=== PATIENT | female | born 1940 | race Caucasian/White ===

== ENCOUNTER 2018-04-11 01:12 | Emergency (ER) | payer MEDICARE, OTHER ==
[~2018-04-11] VITALS: Ht 157.5 cm; Wt 79.4 kg
[~2018-04-11 01:12] MED LIST: ASPIRIN81 M2 PO; VITAMIN D400 UNI1 PO; Z.0.HYZAAR 100-251 E PO
--- OUTSIDE RECORDS SUMMARY | 2018-04-11 01:15 | XMS REPORT | Encounter Summary ---
Author Organization Unknown Address [address] [place] [address] Phone [phone] Reason for Visit Medical Complaint Instructions 1. Eustachian tube disorder eustachian tube problems: care instructions 2. Seasonal allergy seasonal allergies: care instructions Xyzal 5 mg tablet Discussion Note Pt is in NAD; Verbalizes understanding of all instructions with no questions at this time. Plan of Care Patient Instructions Stop Claritin and stary Xyzal for allergy like symptoms. Continue Flonase as directed Take medications as prescribed. Return to clinic or follow up with your PCP within 2-3 days if symptoms worsen as discussed. I recommend evaluation by ENT. Reminders Provider Appointments None recorded. Lab None recorded. Referral None recorded. Procedures None recorded. Surgeries None recorded. Imaging None recorded. Medications Name Start Date aspirin benzonatate 200 mg capsule Take 1 capsule 3 times a day by oral route as needed for cough. clobetasol 0.05 % scalp solution APPLY TO RASH IN SCALP AND EARS TWICE A DAY. desonide 0.05 % topical cream fluticasone 50 mcg/actuation nasal spray,suspension [place] 1 spray every day by intranasal route as needed. losartan 100 mg-hydrochlorothiazide 25 mg tablet TAKE ONE (1) TABLET(S) BY MOUTH ONCE A DAY. ProAir HFA 90 mcg/actuation aerosol inhaler Inhale 2 puffs every 3-4 hours by inhalation route as needed. Xyzal 5 mg tablet Take 1 tablet every day by oral route as needed for 10 days. Medications Administered None recorded. Vitals Height Weight BMI Blood Pressure 5 ft 2 in 200 lbs 36.6 140/86 Lab Results None recorded. Allergies Name Reaction Severity Onset NKDA Problems Name Status Onset Date Source Acute Suppurative Otitis Media without Spontaneous Rupture of Ear Drum Active Encounter Acute Upper Respiratory Infection Active Encounter Upper Respiratory Infection Active Encounter Urinary Tract Infectious Disease Active Encounter Cellulitis Active Encounter Procedures Date Name Performed by Cholecystectomy Information not available Vaccine List Vaccine Type influenza, unspecified formulation 12/16/2015 pneumococcal, unspecified formulation 03/17/2012 Social History Smoking Status Never Smoker Past Encounters 06/19/2016 Eustachian Tube Disorder; Seasonal Allergy BORIS Encarnacion-C: [address] [place] [address], Ph. 05/29/2016 Acute Bronchitis BORIS Encarnacion-C: [address] [place] [address], Ph. History of Present Illness Ear Complaint Reported By: Patient HPI: Location: right. Quality: ears feel full/plugged, muffled. Severity: continuous. Duration: constant, symptoms lasting over 2 weeks. Onset/Timing: gradual. Context: no sick contacts, no recent swimming/water in ear, no exposure to second hand smoke, no head trauma, not grinding teeth, no recent air travel. Modifying factors: does not hurt to lie on, or pull on ear, does not hurt to chew; Flonase and claritin. Associated Symptoms: no discharge from the ears, no nose/sinus problems, no ringing in the ears, no fever, no chills, no earache, no dizziness, no vertigo, no headache, no muscle aches, hearing loss, popping noise in the ears Review of Systems:ROS as noted in the HPI Review of Systems Basic Reported By: Patient Physical Exam Adult Basic, Adult Female Complete Reported By: Patient Constitutional: General Appearance: healthy-appearing, well-nourished, well-developed. Level of Distress: NAD. Ambulation: ambulating normally Psychiatric: Mental Status: active and alert. Orientation: to time, to place, to person Ezt-Gnyh-Yxtzt-Throat: Ears: no lesions on external ear, no outer ear tenderness, EACs clear, TMs clear. Hearing: no hearing loss. Nose: no lesions on external nose, nares patent, no septal deviation, nasal passages clear, no sinus tenderness, no nasal discharge. Lips, Teeth, and Gums: no mouth or lip ulcers, no bleeding gums, normal dentition. Oropharynx: moist mucous membranes, no erythema, no exudates, tonsils not enlarged Neck: Neck: supple. Lymph Nodes: no cervical LAD Lungs: Respiratory effort: no dyspnea, no tachypnea, no use of accessory muscles, no intercostal retractions. Auscultation: breath sounds normal Cardiovascular: Heart Auscultation: RRR, no murmurs Neurologic: Gait and Station: normal gait, normal station
--- OUTSIDE RECORDS SUMMARY | 2018-04-11 01:15 | XMS REPORT | Summary of Care ---
Author Author [facility] Address Unknown Phone Unavailable Encounter HQ Encntr_alirasta([facility]) [id number] Date(s): 01/09/16 - 02/07/16 [facility] Final: Pain, unspecified Discharge Disposition: Home or Self Care Attending Physician: Lv Corral MD Vital Signs No data available for this section Problem List No data available for this section Allergies, Adverse Reactions, Alerts No data available for this section Medications No data available for this section Results No data available for this section Immunizations No data available for this section Procedures No data available for this section Social History No data available for this section Assessment and Plan No data available for this section
--- OUTSIDE RECORDS SUMMARY | 2018-04-11 01:15 | XMS REPORT | Clinical Summary ---
Author Author [facility] Address Unknown Phone Unavailable Care Team Providers Care Non Food Receiving Clerk Name Role Phone Jose Magana MD PCP Allergies No Known Allergies Medications End Date Status Medication Sig Dispensed Refills Start Date Active losartan-hydrochlorothiaz TAKE ONE (1) 0 irina (HYZAAR) 100-25 mg TABLET(S) BY per tablet MOUTH ONCE A DAY. Active cholecalciferol, vitamin Take 2,000 0 D3, (VITAMIN D3) 2,000 Units by unit capsule capsule mouth daily. Active Problems Problem Noted Date Hyperparathyroidism 10/12/2016 Toe sprain 12/28/2015 Closed fracture of humerus 12/08/2015 Encounters Care Team Description Date Type Specialty Lv Corral MD 10/17/2017 Refill Orthopedic Surgery after 04/10/2017 Family History Medical History Relation Name Comments Cancer Father No Known Problems Mother Relation Name Status Comments Father melanoma Mother Social History Date Tobacco Use Types Packs/Day Years Used Never Smoker Smokeless Tobacco: Never Used Alcohol Use Drinks/Week oz/Week Comments No Sex Assigned at Date Recorded Not on file Industry Job Start Date Occupation Not on file Not on file Not on file Travel End Travel History Travel Start No recent travel history available. Last Filed Vital Signs Not on file Plan of Treatment Health Maintenance Due Date Last Done Comments SHINGLES VACCINES (1 of 1991 2) PNEUMOCOCCAL 2006 POLYSACCHARIDE VACCINE AGE 65 AND OVER PNEUMOCOCCAL-13 2006 INFLUENZA VACCINE 10/16/2017 Results Not on fileafter 04/10/2017 Insurance Payer Benefit Subscriber ID Type Phone Address Plan / Group MEDICARE MEDICARE xxxxxxxxxx Medicare [place], [place] PART A AND B AETNA AETNA xxxxxxxxxx Indemnity [employer] INDEMNITY Advance Directives Patient has advance care planning documents, and code status on file. For more i nformation, please contact: Riky Johansen [address] [place] [address] Date Inactivated Comments Code Status Date Activated 10/13/2016 4:22 PM Full Code 10/12/2016 3:10 PM Code Status decision reached by: Patient
--- OUTSIDE RECORDS SUMMARY | 2018-04-11 01:15 | XMS REPORT | Encounter Summary ---
Author Organization Unknown Address [address] [place] [address] Phone [phone] Reason for Visit Medical Complaint Instructions 1. Dysuria painful urination (dysuria): care instructions Macrobid 100 mg capsule culture, urine urinalysis, dipstick 2. Hypertensive disorder elevated blood pressure: care instructions 3. Body mass index 30+ - obesity A healthy lifestyle: care instructions Discussion Note: None recorded. Plan of Care Patient Instructions Drink plenty of water and wear cotton underwear. Please finish all antibiotics, even if you are feeling better. This prevents the infection from coming back. Please seek care or return to [facility] if symptoms do not resolve in 1 week. Reminders Provider Appointments None recorded. Lab Culture, Urine 02/12/2018 [facility] Urinalysis, Dipstick 02/12/2018 [facility] Referral None recorded. Procedures None recorded. Surgeries None recorded. Imaging None recorded. Medications Name Start Date aspirin losartan 100 mg-hydrochlorothiazide 25 mg tablet TAKE ONE (1) TABLET(S) BY MOUTH ONCE A DAY. Macrobid 100 mg capsule Take 1 capsule every 12 hours by oral route for 5 days. ProAir HFA 90 mcg/actuation aerosol inhaler Inhale 2 puffs every 3-4 hours by inhalation route as needed. tamsulosin 0.4 mg capsule TAKE ONE (1) CAPSULE(S) BY MOUTH ONCE A DAY 30 MINUTES AFTER THE SAME MEAL TO HELP PASS A STONE. Medications Administered None recorded. Vitals Height Weight BMI Blood Pressure 5 ft 2 in 190 lbs 34.8 kg/m2 132/82 mm[Hg] Lab Results None recorded. Allergies Code Code System Name Reaction Severity Status Onset NKDA Problems No Known Problems Procedures Date Name Performed by Cholecystectomy Information not available Vaccine List Vaccine Type influenza, unspecified formulation 12/17/2015 pneumococcal, unspecified formulation 03/18/2012 Social History Smoking Status Never Smoker Past Encounters 02/12/2018 Dysuria; Hypertensive Disorder; Body Mass Index 30+ - Obesity NELSON Powell: [address], [place] [address], Ph. History of Present Illness Zmaumv-VWY-Zkeiavb Reported By: Patient HPI: Duration: started 7 days. Associated Symptoms: no fever/chills, no flank pain, no jaundice, no blood in the urine, no vaginal discharge, no urgency, no blisters on genitals, no rash on genitals, no muscle aches, no headache, pain during urination, burning sensation during urination Review of Systems:ROS as noted in the HPI Review of Systems Basic Reported By: Patient Physical Exam Adult Basic, Adult Female Complete, 14-21 Yr Females Reported By: Patient Constitutional: General Appearance: healthy-appearing, well-nourished, well-developed. Level of Distress: NAD. Ambulation: ambulating normally Lungs: Respiratory effort: no dyspnea, no tachypnea, no use of accessory muscles, no intercostal retractions. Auscultation: breath sounds normal, clear to auscultation, no wheezing, no rales/crackles, no rhonchi, no retractions Cardiovascular: Heart Auscultation: RRR, no murmurs, no gallops, no rub, normal femoral pulse. Rate and rhythm: regular Abdomen: Bowel Sounds: normal. Inspection and Palpation: soft, non-distended, no tenderness, no guarding, no rebound tenderness, no masses, CVA tenderness. Liver: non-tender, no hepatomegaly. Spleen: non-tender, no splenomegaly. Palpation: (normal) bowel sounds
--- OUTSIDE RECORDS SUMMARY | 2018-04-11 01:15 | XMS REPORT | Encounter Summary ---
Author Organization Unknown Address [address] [place] [address] Phone [phone] Reason for Visit Medical Complaint Instructions 1. Dysuria painful urination (dysuria): care instructions culture, urine urinalysis, dipstick Bactrim DS 800 mg-160 mg tablet 2. Hypertensive disorder elevated blood pressure: care [...] None recorded. Medications Name Start Date aspirin Bactrim DS 800 mg-160 mg tablet Take 1 tablet every 12 hours by oral route for 5 days. losartan 100 mg-hydrochlorothiazide 25 mg tablet TAKE [...] Index 30+ - Obesity NELSON Powell: [address] [place] [address], Ph. History of Present Illness [id number] Reported By: Patient HPI: Duration: started 7 [...]
--- OUTSIDE RECORDS SUMMARY | 2018-04-11 01:15 | XMS REPORT | Encounter Summary ---
Author Organization Unknown Address [address] [place] [address] Phone [phone] Reason for Visit Medical Complaint Instructions 1. [...] topical cream fluticasone 50 mcg/actuation nasal spray,suspension [place] 1 spray every day by intranasal route [...] Tube Disorder; Seasonal Allergy BORIS Encarnacion-C: [address] [place] [address], Ph. 05/29/2016 Acute Bronchitis BORIS Encarnacion-C: [address] [place] [address], Ph. History of Present Illness Ear Complaint [...] Orientation: to time, to place, to person Ikr-Jieo-Kanxq-Throat: Ears: no lesions on external ear, no [...]
--- OUTSIDE RECORDS SUMMARY | 2018-04-11 01:15 | XMS REPORT | Continuity of Care Document ---
Author Author [facility] Address Unknown Phone Unavailable Problems Problem Status Onset Date Classification Date Reported Comments Source Hypertensive disorder 02/12/2018 Diagnosis 02/12/2018 [facility] Dysuria 02/12/2018 Diagnosis 02/12/2018 [facility] Body mass index 30+ - obesity 02/12/2018 Diagnosis 02/12/2018 [facility] Eustachian tube disorder 06/19/2016 Diagnosis 06/19/2016 [facility] Seasonal allergy 06/19/2016 Diagnosis 06/19/2016 [facility] Acute bronchitis 05/29/2016 Diagnosis 06/19/2016 [facility] Acute Suppurative Otitis Media without Spontaneous Rupture of Ear Drum Problem 06/19/2016 [facility] Acute Upper Respiratory Infection Problem 06/19/2016 [facility] Upper Respiratory Infection Problem 06/19/2016 [facility] Urinary Tract Infectious Disease Problem 06/19/2016 [facility] Cellulitis Problem 06/19/2016 [facility] Final: Pain, unspecified 02/10/2016 [facility] Final: Difficulty in walking, not elsewhere classified 04/15/2016 [facility] LT SHOULDER Active [facility] OTHER DISP FX OF UPPER END OF LEFT HUMER Active [facility] PAIN IN LEFT SHOULDER Active [facility] MUSCLE WEAKNESS (GENERALIZED) Active [facility] PAIN, UNSPECIFIED Active [facility] [place] DIFFICULTY IN WALKING, NOT ELSEWHERE CLA Active [facility] [place] Medications Medication Details Route Status Patient Instructions Ordering Provider Order Date Source aspirin aspirin Active [facility] Sulfamethoxazole 800 MG / Trimethoprim 160 MG Oral Tablet [Bactrim] Bactrim DS 800 mg-160 mg tablet Take 1 tablet every 12 hours by oral route for 5 days. Active [facility] Hydrochlorothiazide 25 MG / Losartan Potassium 100 MG Oral Tablet losartan 100 mg-hydrochlorothiazide 25 mg tablet TAKE ONE (1) TABLET(S) BY MOUTH ONCE A DAY. Active [facility] Albuterol 0.09 MG/ACTUAT Metered Dose Inhaler ProAir HFA 90 mcg/actuation aerosol inhaler Inhale 2 puffs every 3-4 hours by inhalation route as needed. Active [facility] Tamsulosin hydrochloride 0.4 MG Oral Capsule tamsulosin 0.4 mg capsule TAKE ONE (1) CAPSULE(S) BY MOUTH ONCE A DAY 30 MINUTES AFTER THE SAME MEAL TO HELP PASS A STONE. Active [facility] Acetaminophen 300 MG / Codeine Phosphate 30 MG Oral Tablet acetaminophen 300 mg-codeine 30 mg tablet Active [facility] 200 ACTUAT Albuterol 0.09 MG/ACTUAT Metered Dose Inhaler albuterol sulfate HFA 90 mcg/actuation aerosol inhaler Inhale 2 puffs every 3-4 hours by inhalation route as needed. Active [facility] Amoxicillin 875 MG / Clavulanate 125 MG Oral Tablet amoxicillin 875 mg-potassium clavulanate 125 mg tablet TAKE ONE (1) TABLET(S) BY MOUTH EVERY TWELVE HOURS AFTER MEALS FOR 10 DAYS. Active [facility] Azithromycin 250 MG Oral Tablet azithromycin 250 mg tablet Active [facility] benzonatate 200 MG Oral Capsule benzonatate 200 mg capsule Take 1 capsule 3 times a day by oral route as needed for cough. Active [facility] Clobetasol Propionate 0.5 MG/ML Topical Solution clobetasol 0.05 % scalp solution APPLY TO RASH IN SCALP AND EARS TWICE A DAY. Active [facility] Desonide 0.5 MG/ML Topical Cream desonide 0.05 % topical cream Active [facility] Fluticasone propionate 0.05 MG/ACTUAT Metered Dose Nasal [place] fluticasone 50 mcg/actuation nasal spray,suspension [place] 1 spray every day by intranasal route as needed. Active [facility] Hyzaar Hyzaar Active [facility] levocetirizine dihydrochloride 5 MG Oral Tablet levocetirizine 5 mg tablet Active [facility] meloxicam 7.5 MG Oral Tablet meloxicam 7.5 mg tablet Active [facility] NITROFURANTOIN, MACROCRYSTALS 25 MG / Nitrofurantoin, Monohydrate 75 MG Oral Capsule [Macrobid] Macrobid 100 mg capsule Take 1 capsule every 12 hours by oral route for 5 days. Active [facility] 200 ACTUAT Albuterol 0.09 MG/ACTUAT Metered Dose Inhaler [ProAir] ProAir HFA 90 mcg/actuation aerosol inhaler Inhale 2 puffs every 3-4 hours by inhalation route as needed. Active [facility] levocetirizine dihydrochloride 5 MG Oral Tablet [Xyzal] Xyzal 5 mg tablet Take 1 tablet every day by oral route as needed for 10 days. Active [facility] Allergies, Adverse Reactions, Alerts Substance Category Reaction Severity Reaction type Status Date Reported Comments Source Immunizations Immunization Date Given Site Status Last Updated Comments Source influenza, unspecified formulation 12/17/2015 completed [facility] pneumococcal, unspecified formulation 03/18/2012 completed [facility] Results Order Name Results Value Reference Range Date Interpretation Comments Source Vital Signs Vital Sign Value Date Comments Source Diastolic (mm Hg) 82 02/12/2018 [facility] Height 62 02/12/2018 [facility] Systolic (mm Hg) 132 02/12/2018 [facility] Weight 190 02/12/2018 [facility] Diastolic (mm Hg) 86 06/19/2016 [facility] Height 62 06/19/2016 [facility] Systolic (mm Hg) 140 06/19/2016 [facility] Weight 200 06/19/2016 [facility] Diastolic (mm Hg) 80 05/29/2016 [facility] Height 62 05/29/2016 [facility] Systolic (mm Hg) 150 05/29/2016 [facility] Weight 200 05/29/2016 [facility] Encounters Location Location Details Encounter Type Encounter Number Reason For Visit Attending Provider ADM Date DC Date Status Source [facility] Patients [id number] Lv Corral 01/09/2016 02/08/2016 [facility] [id number] Lv Corral 03/14/2016 04/13/2016 [facility] [place] - [facility] - [id number] Mayberry-C: [address] [place] [address], Ph. [id number] Wanda Simons 05/29/2016 [facility] [place] [facility] - [id number] Mayberry-C: [address] [place] [address], Ph. [id number] Wanda Harleyroy 05/29/2016 [facility] [place] [facility] - [id number] Simons, DEBURRER MACHINE-C: [address], [place] [address], Ph. [id number] Wanda Harleyroy 05/29/2016 [facility] [place] [facility] - [id number] Simons, DEBURRER MACHINE-C: [address], [place] [address], Ph. [id number] Wanda Harleyroy 06/19/2016 [facility] [place] [facility] - [id number] Simons, DEBURRER MACHINE-C: [address], [place] [address], Ph. [id number] Wanda Harleyroy 06/19/2016 [facility] [place] [facility] - [id number] Campa, DEBURRER MACHINE-C: [address], [place] [address], Ph. [id number] [place] 02/12/2018 [facility] [place] [facility] - [id number] Antonieta Campa, DEBURRER MACHINE-C: [address], [place] [address], Ph. [phone] [id number] [place] 02/12/2018 [facility] Procedures Procedure Code Date Perfomer Comments Source Cholecystectomy [facility]
--- OUTSIDE RECORDS SUMMARY | 2018-04-11 01:15 | XMS REPORT | Encounter Summary ---
Author Organization Unknown Address [address] [place] [address] Phone [phone] Reason for Visit Medical Complaint Instructions 1. Acute bronchitis bronchitis: care instructions albuterol sulfate HFA 90 mcg/actuation aerosol inhaler benzonatate 200 mg capsule fluticasone 50 mcg/actuation nasal spray,suspension Discussion Note Pt is in NAD; Verbalizes understanding of all instructions with no questions at this time. Plan of Care Patient Instructions Start fluticasone as needed for congestion. [place] one spray in each nostril twice a day. Take a warm, steamy shower, blow your nose thereafter, and spray in each nostril. Tilt your head up for about 10 seconds and breath through your mouth. Do not sniff or snort the medication in or else the medication will go to your throat and not be absorbed appropriately. Start Albuterol inhaler 2 puffs every 4-6 hrs as needed for shortness of breath/wheezing. Start Claritin as per package insert. Take medications as prescribed and follow up with a PCP within 2-3 if symptoms worsen as discussed. Alternate with Ibuprofen and acetaminophen every 4hrs as needed for fever or ear pain. Proper hydration and rest Return to clinic or f/u with your PCP within 2-3 days if symptoms worsen as discussed. In case of emergency call 911 or go to nearest ER. Reminders Provider Appointments None recorded. Lab None recorded. Referral None recorded. Procedures None recorded. Surgeries None recorded. Imaging None recorded. Medications Name Start Date acetaminophen 300 mg-codeine 30 mg tablet albuterol sulfate HFA 90 mcg/actuation aerosol inhaler Inhale 2 puffs every 3-4 hours by inhalation route as needed. amoxicillin 875 mg-potassium clavulanate 125 mg tablet TAKE ONE (1) TABLET(S) BY MOUTH EVERY TWELVE HOURS AFTER MEALS FOR 10 DAYS. aspirin azithromycin 250 mg tablet benzonatate 200 mg capsule Take 1 capsule 3 times a day by oral route as needed for cough. clobetasol 0.05 % scalp solution APPLY TO RASH IN SCALP AND EARS TWICE A DAY. desonide 0.05 % topical cream fluticasone 50 mcg/actuation nasal spray,suspension [place] 1 spray every day by intranasal route as needed. Hyzaar levocetirizine 5 mg tablet losartan 100 mg-hydrochlorothiazide 25 mg tablet TAKE ONE (1) TABLET(S) BY MOUTH ONCE A DAY. meloxicam 7.5 mg tablet Medications Administered None recorded. Vitals Height Weight BMI Blood Pressure 5 ft 2 in 200 lbs 36.6 150/80 Lab Results None recorded. Allergies Name Reaction [...] History Smoking Status Never Smoker Past Encounters 05/29/2016 Acute Bronchitis Wanda Simons, [employer]ATION MANAGER-C: [address] [place] [address], Ph. History of Present Illness Cough Reported By: Patient HPI: Location: chest; right ear: pain and pressure. Quality: dry cough. Duration: 4 days. Onset/Timing: gradual. Context: no sick contacts, no foreign travel, non-smoker. Modifying factors: ; Benadryl and Mucinex. Associated Symptoms: no sputum production, no shortness of breath, no sweats, no significant weight gain, no significant weight loss, no morning cough, no sore throat, no vomiting, no diarrhea, no rash, no nausea, no fever/chills, no muscle aches, no headache, wheezing; right ear pressure and pain, sneezing, runny nose and teary eyes Notes:
Review of Systems:ROS as noted in the HPI Review of Systems Basic Reported By: Patient Physical Exam Adult Basic, Adult Female Complete Reported By: Patient Constitutional: General Appearance: healthy-appearing, well-nourished, well-developed. Level of Distress: NAD. Ambulation: ambulating normally Psychiatric: Mental Status: active and alert. Orientation: to time, to place, to person Yla-Xxpb-Ydvow-Throat: Ears: no lesions on external ear, no outer ear tenderness, EACs clear, TMs clear. Hearing: no hearing loss. Nose: no lesions on external nose, nares patent, no septal deviation, nasal passages clear, no sinus tenderness, nasal discharge--rhinorrhea, post nasal drip. Lips, Teeth, and Gums: no mouth or lip ulcers, no bleeding gums, normal dentition. Oropharynx: moist mucous membranes, no erythema, no exudates, tonsils not enlarged Neck: Lymph Nodes: no cervical LAD Lungs: Respiratory effort: no dyspnea, no tachypnea, no use of accessory muscles, no intercostal retractions. Auscultation: inspiratory wheezing Cardiovascular: Heart Auscultation: RRR, no murmurs Neurologic: Gait and Station: normal gait, normal station
--- OUTSIDE RECORDS SUMMARY | 2018-04-11 01:15 | XMS REPORT | Summary of Care ---
Author Author [facility] Address Unknown Phone Unavailable Encounter HQ Encntr_alias([facility]) [id number] Date(s): 03/14/16 - 04/12/16 [facility] Final: Difficulty in walking, not elsewhere classified Discharge Disposition: Home or Self Care Attending [...]
[2018-04-11] MEDS ORDERED: SODIUM CHLORIDE 0.9% 1000ML 1,000 ML IV SCH (01:45)
[2018-04-11] MEDS ORDERED: CEFTRIAXONE SOD 1 GM/NS 50 ML 50 ML IV ONE (01:45)
[2018-04-11] MEDS ORDERED: KETOROLAC TROMETHAMINE 30 MG/ML VIAL IV STA (01:51)
== END 2018-04-11 03:50 | disposition home or self-care (01) ==
LOC: FSED 01:12
DX: R50.9 Fever, unspecified (principal); R30.0 Dysuria; N30.91 Cystitis, unspecified with hematuria; R73.9 Hyperglycemia, unspecified; I10 Essential (primary) hypertension; Z85.72 Personal history of non-Hodgkin lymphomas
CPT/HCPCS: 87086; 87186; 99283